=== PATIENT | male | born 1950 | race Caucasian/White ===

== ENCOUNTER 2018-09-10 12:00 | Inpatient (IN) | payer OTHER ==
[~2018-09-10] VITALS: Ht 177.8 cm; Wt 121.9 kg
[2018-09-10 13:14] LABS: BASOPHILS % (AUTO) 0.6 % (0.0-5.0); EOSINOPHILS % (AUTO) 2.1 % (0.0-8.0); HEMATOCRIT 43.1 % (42-54); LYMPHOCYTES % (AUTO) 25.4 % (21.0-51.0); MEAN CORPUSCULAR HEMOGLOBIN 31.1 pg (27.0-33.0); MEAN CORPUSCULAR HGB CONC 33.7 g/dL (32.0-36.0); MEAN CORPUSCULAR VOLUME 92.3 fL (79-99); MONOCYTES % (AUTO) 12.7 % (3.0-13.0); NEUTROPHILS % (AUTO) 59.2 % (40.0-77.0); NUCLEATED RED BLOOD CELLS 0.2 % (0.0-0.19); PLATELET COUNT (AUTO) 195 K/uL (130-400); RED BLOOD CELL COUNT(AUTO) 4.66 MIL/uL (4.50-6.20); RED CELL DISTRIBUTION WIDTH 12.5 % (11.0-15.5); WHITE BLOOD COUNT (AUTO) 5.1 K/uL (4.8-10.8)
[2018-09-10 13:15] LABS: APPEARANCE,URINE Clear (CLEAR); BILIRUBIN,URINE Negative (NEGATIVE); COLOR,URINE Yellow (YELLOW); GLUCOSE, URINE (UA) Negative (NEGATIVE); KETONES,URINE Negative (NEGATIVE); LEUKOCYTE ESTERASE ,URINE Negative (NEGATIVE); NITRATE,URINE Negative (NEGATIVE); OCCULT BLOOD,URINE Negative (NEGATIVE); PH,URINE 6.5 (5.0-8.0); PROTEIN,URINE Negative (NEGATIVE); UROBILINOGEN,URINE 0.2 mg/dL (0.2-1.0)
[2018-09-10] MEDS ORDERED: METO25PO2 MC (13:20)
[2018-09-10] MEDS ORDERED: ATOR-2 PO (13:21)
[2018-09-10] MEDS ORDERED: METH500T6 PO (13:23)
[2018-09-10] MEDS ORDERED: ESCI20TA36 PO (13:23)
[2018-09-10 13:24] VITALS: BP 141/66
[2018-09-10 13:30] LABS: INR 0.91 (0.85-1.15); PARTIAL THROMBOPLASTIN TIME 26.3 SEC (26.3-35.5); PROTHROMBIN TIME 9.6 SEC (9.6-11.6)
[2018-09-10] MEDS ORDERED: LAMO100T13 PO (13:32)
[2018-09-10] MEDS ORDERED: QUET200T58 PO (13:34)
[2018-09-10] MEDS ORDERED: TRAM50TA4 PO (13:36)
[2018-09-10] MEDS ORDERED: CALC-20 PO (13:38)
[2018-09-10 13:49] LABS: POTASSIUM 4.6 mmol/L (3.5-5.1)
[2018-09-10] MEDS ORDERED: SYMB8060 IH (14:12)
[2018-09-10] MEDS ORDERED: MVIT PO (14:12)
[2018-09-10] MEDS ORDERED: GLUC-145 PO (14:12)
[2018-09-10] MEDS ORDERED: OMEG-125 PO (14:12)
[2018-09-10] MEDS ORDERED: CARB1DRO4 OP (14:12)
[2018-09-10] MEDS ORDERED: RANI150T7 PO (14:12)
[2018-09-10] MEDS ORDERED: CYAN100099 PO (14:12)
[2018-09-10] MEDS ORDERED: AEC81 PO (14:12)
[2018-09-10] MEDS ORDERED: CHOL200026 PO (14:12)
[2018-09-10] MEDS ORDERED: MORP-108 PO (14:12)
[2018-09-10] MEDS ORDERED: MELO-106 PO (14:12)
[2018-09-10] MEDS ORDERED: VITA1CAP85 PO (14:12)
[2018-09-10] MEDS ORDERED: SODIUM CHLORIDE 0.9% 1000ML 1,000 ML IV SCH (17:45)
[2018-09-12 06:20] VITALS: BP 127/67
[2018-09-12] MEDS ORDERED: SUCCINYLCHOLINE 200MG/10ML SYR ONE ×2 (08:13→08:21)
[2018-09-12] MEDS ORDERED: LIDOCAINE PF 2% 5ML ABBOJECT ONE (08:13)
[2018-09-12] MEDS ORDERED: DEXAMETHASONE SOD PHOSPHATE 10MG/ML 1ML VIAL ONE (08:13)
[2018-09-12] MEDS ORDERED: PROPOFOL 10 MG/ML 20ML VIAL IV ONE (08:14)
[2018-09-12] MEDS ORDERED: MIDAZOLAM HCL 1 MG/ML 2ML VIAL ONE ×2 (08:14→11:50)
[2018-09-12] MEDS ORDERED: GLYCOPYRROLATE 1 MG/5 ML SYRINGE ONE (08:14)
[2018-09-12] MEDS ORDERED: NEOSTIGMINE 5MG/5ML SYR IV ONE (08:15)
[2018-09-12] MEDS ORDERED: ONDANSETRON HCL 4 MG/2 ML VIAL ONE (08:15)
[2018-09-12] MEDS ORDERED: FENTANYL CITRATE PF 50 MCG/1 ML 2ML VIAL ONE ×2 (08:16→08:24)
[2018-09-12] MEDS ORDERED: ROCURONIUM 10MG/1ML SYR 10 MG/ML ML ONE ×2 (08:16→08:19)
[2018-09-12] MEDS ORDERED: ATROPINE SULFATE 0.1 MG/ML 10 ML SYG IVP ONE (08:18)
[2018-09-12] MEDS ORDERED: ESMOLOL HCL 10 MG/ML 10 ML VIAL ONE (08:18)
[2018-09-12] MEDS ORDERED: EPHEDRINE SULFATE 50 MG/ML AMPULE ONE (08:20)
[2018-09-12] MEDS ORDERED: PHENYLEPHRINE HCL 10 MG/ML 1ML VIAL IV ONE (08:22)
[2018-09-12] MEDS ORDERED: HEPARIN SODIUM 1000UNIT/ML 10ML VIAL ONE ×2 (08:23→11:41)
[2018-09-12] MEDS ORDERED: EPINEPHRINE 1 MG/ML AMPULE ONE (08:24)
[2018-09-12] MEDS ORDERED: IODIXANOL 320 MG/ML 100 ML VIAL ONE (11:37)
[2018-09-12] MEDS ORDERED: CEFAZOLIN SODIUM 1 GM VIAL ONE (12:15)
--- NOTE | 2018-09-12 13:13 | NUR ---
UPDATE ON PATIENT STATUS GIVEN TO FAMILY, PER FAMILY THEY UNDERSTANDING TIME OF PROCEDURE. AND THANKED ME FOR UPDATE.
[2018-09-12] MEDS ORDERED: TEMAZEPAM 30 MG CAP PO PRN (14:00)
[2018-09-12] MEDS ORDERED: ONDANSETRON HCL 4 MG/2 ML VIAL IV PRN (14:00)
[2018-09-12] MEDS ORDERED: ACETAMINOPHEN-CODEINE 300/30MG TAB PO PRN (14:00)
[2018-09-12] MEDS ORDERED: SODIUM CHLORIDE 0.9% 1000ML 1,000 ML IV SCH (14:00)
[2018-09-12] MEDS ORDERED: MORPHINE SULFATE 4 MG/1ML SYG IV PRN (14:00)
[2018-09-12] MEDS ORDERED: ACETAMINOPHEN 325 MG TAB PO PRN ×2 (14:00)
--- NOTE | 2018-09-12 14:30 | NUR ---
PT WAS ADMITTED TO ROOM 219 AFTER ENDOLUMINAL GRAFTS SURGERY AND DR. OSMAN THE SURGEON.
[2018-09-12] MEDS: MORPHINE SULFATE 5 MG/ML VIAL IV PRN ×2 (15:30→18:37)
--- NOTE | 2018-09-12 15:40 | NUR ---
PT WAS TURNED ON HIS SIDE FOR COMFORT AND PT HAD BEEN MEDICATED WITH 5MG OF MORPHINE SULFATE FOR PAIN. PT AND FAMILY STATE THAT PT IS USED TO MORPHINE SULFATE 10MG PO IN THE MORNING AND 10MG IN THE PM.
--- NOTE | 2018-09-12 17:00 | NUR ---
PT HAS BEEN CALLING NURSING STAFF FREQUENTLY C/O PAIN AND DISCOMFORT. STATES THAT THE MORPHINE DID NOT TOUCH HIS DISCOMFORT AND IS NOT HAPPY THAT HIS PAIN MEDICATION IS EVERY 4 HOURS.
[2018-09-12] MEDS ORDERED: CYCLOBENZAPRINE HCL 10 MG TABLET PO PRN (18:15)
[2018-09-12] MEDS ORDERED: TRAMADOL HCL 50 MG TABLET PO PRN (18:15)
[2018-09-12] MEDS: ACETAMINOPHEN-CODEINE 300/30MG TAB PO PRN (18:16)
[2018-09-12] MEDS ORDERED: MORPHINE SULFATE 5 MG/ML VIAL IV PRN (18:30)
--- NOTE | 2018-09-12 18:30 | NUR ---
DR. OSMAN RETURNED CALL AND ORDERED FOR PT TO GET HIS MORPHINE 5 MG Q 3HRS. PT WAS ADVISED AND MORPHINE WAS GIVEN.
[2018-09-12 19:00] VITALS: BP 142/69
[2018-09-12] MEDS: SODIUM CHLORIDE 0.9% 1000ML 1,000 ML IV SCH ×2 (19:35→23:56)
[2018-09-12] MEDS: CEFAZOLIN SODIUM 1 GM VIAL IVP SCH (19:35)
[2018-09-12] MEDS: PHARMACY COMMUNICATION MISC SCH (19:45)
[2018-09-12 20:00] VITALS: BP 125/96
[2018-09-12 21:00] VITALS: BP 137/77
[2018-09-12] MEDS: CALCIUM 600 + VITAMIN D 400 TABLET PO SCH (21:00)
[2018-09-12] MEDS: METOPROLOL TARTRATE 25 MG TAB PO SCH (21:09)
[2018-09-12] MEDS: FAMOTIDINE 20MG TAB 20 MG TAB PO SCH (21:09)
[2018-09-12 22:00] VITALS: BP 133/73
[2018-09-12] MEDS ORDERED: HYDROMORPHONE 4MG/ML 1ML VIAL IV PRN (22:30)
[2018-09-12] MEDS ORDERED: HYDROMORPHONE 1 MG/1 ML AMP ONE (22:35)
[2018-09-12 23:00] VITALS: BP_SYST 129; BP_SYST 158; BP_DIAS 73; BP_DIAS 81
[2018-09-13] VITALS (9 sets, daily range): BP systolic 109–163; BP diastolic 47–74
[2018-09-13] MEDS: ACETAMINOPHEN-CODEINE 300/30MG TAB PO PRN (00:01)
[2018-09-13] MEDS: PHARMACY COMMUNICATION MISC SCH (00:03)
[2018-09-13] MEDS: CEFAZOLIN SODIUM 1 GM VIAL IVP SCH (03:19)
--- NOTE | 2018-09-13 03:30 | NUR ---
A LINE LABS DRAWN AND A LINE DISCONTINUED PRESSURE HELD X 5 MIN NO SWELLING, BRUISING, OR BLEEDING NOTED TO SITE POST. DRESSING APPLIED TO SITE. PT TOLERATED WELL. WILL CONTINUE TO MONITOR.
[2018-09-13 03:58] LABS: MEAN CORPUSCULAR HEMOGLOBIN 31.3 pg (27.0-33.0); PLATELET COUNT (AUTO) 206 K/uL (130-400); RED BLOOD CELL COUNT(AUTO) 4.13 MIL/uL (4.50-6.20); RED CELL DISTRIBUTION WIDTH 12.7 % (11.0-15.5); WHITE BLOOD COUNT (AUTO) 13.5 K/uL (4.8-10.8)
[2018-09-13] MEDS ORDERED: HYDROMORPHONE 1 MG/1 ML AMP ONE (04:06)
[2018-09-13 04:09] LABS: CREATININE 0.9 mg/dL (0.5-1.5); POTASSIUM 3.9 mmol/L (3.5-5.1)
--- NOTE | 2018-09-13 07:15 | NUR ---
DR. CRAFT HERE AND ORDERS TO DISCHARGE WERE GIVEN. PT IN GOOD SPIRITS.
[2018-09-13] MEDS: CALCIUM 600 + VITAMIN D 400 TABLET PO SCH (08:03)
[2018-09-13] MEDS: FAMOTIDINE 20MG TAB 20 MG TAB PO SCH (08:03)
[2018-09-13] MEDS: METOPROLOL TARTRATE 25 MG TAB PO SCH (08:04)
[2018-09-13] MEDS ORDERED: QUETIAPINE FUMARATE 100 MG TAB PO SCH (09:00)
[2018-09-13] MEDS ORDERED: LAMOTRIGINE 25 MG TAB PO SCH (09:00)
[2018-09-13] MEDS ORDERED: MULTIVITAMIN TABLET PO SCH (09:00)
[2018-09-13] MEDS ORDERED: CYANOCOBALAMIN (VITAMIN B-12) 1,000 MCG TABLET PO SCH (09:00)
[2018-09-13] MEDS ORDERED: ATORVASTATIN CALCIUM 40 MG TABLET PO SCH (09:00)
[2018-09-13] MEDS ORDERED: Escitalopram Oxalate 20 MG PO SCH (09:00)
[2018-09-13] MEDS ORDERED: ASPIRIN 81 MG EC TAB PO SCH (09:00)
[2018-09-13] MEDS ORDERED: CARBOXYMETHYLCELLULOSE SODIUM OP SCH (09:00)
[2018-09-13] MEDS ORDERED: Cholecalciferol (Vitamin D3) (Vitamin D3) 2,000 UNIT PO SCH (09:00)
[2018-09-13] MEDS ORDERED: [UNRECOGNIZED DRUG - OTHER] PO SCH (09:00)
[2018-09-13] MEDS ORDERED: FISH OIL 1000 MG/CAP PO SCH (09:00)
[2018-09-13] MEDS ORDERED: VITAMIN B COMPLEX 1 CAPSULE PO SCH (09:00)
--- NOTE | 2018-09-13 09:08 | NUR ---
INSTRUCTIONS WERE GIVEN IN DETAIL ABOUT PT CALLING FOR HIS APPOINTMENT WITH DR. OSMAN FOR POST ENDOLUMINAL GRAFTS.
--- NOTE | 2018-09-13 09:25 | NUR ---
PT WAS TAKEN TO PRIVATE VEHICLE BY W/C. PT IN NO APPARENT DISCOMFORT.
== END 2018-09-13 09:30 | disposition home or self-care (01) | DRG 269 ==
LOC: EDSTATUS 12:00 → DAHIP 09-12 05:30 → 2CH 09-12 15:15
PROVIDERS: ADMIT Internal Medicine; ATTEND Internal Medicine Cardiovascular Disease
PROC: 047 Lower Arteries, Dilation (ICD-10-PCS; principal; 2018-09-12)
PROC: B4101ZZ Fluoroscopy of Abdominal Aorta using Low Osmolar Contrast (ICD-10-PCS; 2018-09-12)
PROC: B41C1ZZ Fluoroscopy of Pelvic Arteries using Low Osmolar Contrast (ICD-10-PCS; 2018-09-12)
PROC: 04V03DZ Restriction of Abdominal Aorta with Intraluminal Device, Percutaneous Approach (ICD-10-PCS; 2018-09-12)
DX: I71.4 Abdominal aortic aneurysm, without rupture (principal); I73.9 Peripheral vascular disease, unspecified; E78.5 Hyperlipidemia, unspecified; F43.10 Post-traumatic stress disorder, unspecified; I10 Essential (primary) hypertension; I25.10 Atherosclerotic heart disease of native coronary artery without angina pectoris; I71.2 Thoracic aortic aneurysm, without rupture; N40.0 Benign prostatic hyperplasia without lower urinary tract symptoms; Z95.5 Presence of coronary angioplasty implant and graft; G89.29 Other chronic pain; M54.9 Dorsalgia, unspecified; Z88.8 Allergy status to other drugs, medicaments and biological substances; Z91.018 Allergy to other foods; E66.9 Obesity, unspecified; Z68.38 Body mass index [BMI] 38.0-38.9, adult
CPT/HCPCS: 34705; 34713; 36415; 71045; 80048; 81003; 85025; 85027; 85347; 85610; 85730; 86850; 86900; 86901; 86922; 93005; A4218; A4344; C1725; C1760; C1769; C1876; C1887; C1894; G0378; J0171; J0330; J0461; J0690; J1100; J1170; J1644; J2001; J2250; J2270; J2370; J2405; J2704; J2710; J3010; J3490; J7030; Q9967

== ENCOUNTER → 2022-07-02 | Outpatient (CLI) | payer OTHER ==
[~2022-07-02] MED LIST: AEC81 PO; ATOR-2 PO; CALC-1219 PO; CARB1DRO4 OP; CHOL200026 PO; CYAN100099 PO; ESCI20TA38 PO; GLUC-145 PO; IOHEXOL 350 MG/ML 100ML INFUS..BTL IV ONE; LAMO100T16 PO; MELO-106 PO; METH-811 PO; METO25PO2 MC; MORP-108 PO; MVIT PO; OMEG-125 PO; QUET200T30 PO; RANI150T7 PO; SYMB8060 IH; TRAM50TA4 PO; VITA1CAP85 PO
== END | disposition home or self-care (01) ==
LOC: RAH 10:26
PROVIDERS: ATTEND Internal Medicine Cardiovascular Disease
DX: I25.10 Atherosclerotic heart disease of native coronary artery without angina pectoris (principal); I71.9 Aortic aneurysm of unspecified site, without rupture; I51.7 Cardiomegaly; I71.21 Aneurysm of the ascending aorta, without rupture
CPT/HCPCS: 71275; Q9967

== ENCOUNTER → 2022-07-06 | Outpatient (CLI) | payer OTHER ==
[~2022-07-06] MED LIST changes: -IOHEXOL 350 MG/ML 100ML INFUS..BTL IV ONE; +REGADENOSON 0.4 MG/5 ML PF SYG IVP ONE
== END | disposition home or self-care (01) ==
LOC: SHCH 09:09
PROVIDERS: ATTEND Internal Medicine Cardiovascular Disease
DX: R07.9 Chest pain, unspecified (principal)
CPT/HCPCS: 78452; 96374; 93017; J2785; A9500 ×2

== ENCOUNTER → 2023-05-06 | Outpatient (CLI) | payer OTHER ==
[~2023-05-06] MED LIST changes: +IOHEXOL 350 MG/ML 100ML INFUS..BTL IV ONE; -REGADENOSON 0.4 MG/5 ML PF SYG IVP ONE
== END | disposition home or self-care (01) ==
LOC: RAH 10:00
PROVIDERS: ATTEND Internal Medicine Cardiovascular Disease
DX: I51.7 Cardiomegaly (principal); I71.21 Aneurysm of the ascending aorta, without rupture; M47.815 Spondylosis without myelopathy or radiculopathy, thoracolumbar region; K76.0 Fatty (change of) liver, not elsewhere classified; I70.0 Atherosclerosis of aorta
CPT/HCPCS: 71275; Q9967

== ENCOUNTER → 2024-06-26 | Outpatient (CLI) | payer OTHER ==
[~2024-06-26] MED LIST changes: +IOHEXOL-350 50ML VIAL IV ONE
--- NOTE | 2024-06-26 15:03 | HMCIMG ---
CT ANGIO COLTON ABD AORTA RUNOFF HISTORY: Aortic aneurysm COMPARISON: None TECHNIQUE: CT angiography of the chest , abdomen and pelvis was performed. The study was performed using angiographic technique with maximum intensity projection reconstruction images. Patient was given 150 cc of Omnipaque through intravenous route. FINDINGS: No CT evidence of filling defect is seen to suggest pulmonary embolus. No CT evidence of aortic dissection is seen. There is ascending thoracic aortic aneurysm measuring 4.8 x 4.5 cm. No evidence of parenchymal disease is seen. No CT evidence of pleural effusion or pericardial effusion is seen. The heart is enlarged. Liver measures 16 cm. The liver, spleen, adrenal glands and pancreas are unremarkable. There is no evidence of hydronephrosis bilaterally. No evidence of renal stone is seen. Fecal material is seen in the colon. There are normal size retroperitoneal and mesenteric lymph nodes. No ascites is seen. Atherosclerotic changes are present. There is diffuse atherosclerotic disease. There is abdominal aortic aneurysm repair changes with aortobilateral iliac stent graft. No leakage is seen. The celiac, superior mesenteric and bilateral renal arteries are grossly patent. The visualized portion of the iliac and femoral arterial systems are also grossly patent. The right popliteal artery, bilateral anterior tibial, peroneal and posterior tibial arteries are patent at least to the level of mid calf. Distal portion cannot be evaluated due to poor opacification. High-grade stenosis is suspected in the left distal popliteal artery, left tibioperoneal trunk with almost complete occlusion. Pelvic sidewalls are symmetric bilaterally. Bladder is moderately distended. Bladder wall is thick measuring 12 mm. Prostate gland is enlarged measuring 5 x 6.7 cm. There is clinical suspicion for cystitis, urinalysis correlation may be helpful. IMPRESSION: 1. There is ascending thoracic aortic aneurysm measuring 4.8 x 4.5 cm. High-grade stenosis is suspected in the left distal popliteal artery, left tibioperoneal trunk with almost complete occlusion. Atherosclerosis. CT was performed with one or more following dose reduction techniques: automated exposure control, adjustment of the mA and kv according to patient's size, or use of a iterative reconstruction technique.
== END | disposition home or self-care (01) ==
LOC: RAH 09:44
PROVIDERS: ATTEND Internal Medicine Cardiovascular Disease
DX: I71.40 Abdominal aortic aneurysm, without rupture, unspecified (principal); I70.0 Atherosclerosis of aorta; D65 Disseminated intravascular coagulation [defibrination syndrome]; N40.0 Benign prostatic hyperplasia without lower urinary tract symptoms; N32.89 Other specified disorders of bladder
CPT/HCPCS: 75635; 71275; Q9967 ×2